=== PATIENT | male | born 1985 | race Caucasian/White ===

== ENCOUNTER 2021-08-15 22:44 | Emergency (ER) | payer SELFPAY ==
[~2021-08-15] VITALS: Ht 162.6 cm; Wt 66.9 kg
[2021-08-15 23:15] VITALS: BP 127/69
[2021-08-16 00:39] LABS: BASOPHILS % 0.5 % (0.0-2.0); EOSINOPHILS % 2.7 % (0.0-5.0); HEMATOCRIT. 43.6 % (42.0-52.0); HEMOGLOBIN. 15.2 g/dL (14.0-18.0); LYMPHOCYTES % 19.1 % (20.0-50.0); MEAN CORPUSCULAR HEMOGLOBIN 27.3 pg (28.0-32.0); MEAN CORPUSCULAR VOLUME 78.5 fL (80.0-94.0); MEAN PLATELET VOLUME 7.5 fl (7.4-10.4); MONOCYTES % 7.5 % (2.0-8.0); NEUTROPHILS % 70.2 % (40.0-76.0); PLATELET 253 x1000/uL (130-400); RED BLOOD CELL COUNT 5.55 mill/uL (4.7-6.1); RED CELL DISTRIBUTION WIDTH 14.5 % (11.6-14.6)
[2021-08-16 00:46] LABS: CHLORIDE 109 mEq/L (98-107)
== END 2021-08-16 02:58 | disposition home or self-care (01) ==
LOC: ER 22:44
DX: R06.02 Shortness of breath (principal); J45.909 Unspecified asthma, uncomplicated
CPT/HCPCS: 36415; 71045; 80053; 83880; 84484; 85025; 93005; 99285